=== PATIENT | male | born 1935 | race Caucasian/White ===

== ENCOUNTER → 2017-07-11 | Outpatient (CLI) | payer BC ==
[~2017-07-11] MED LIST: ALEN70TA4 PO; CALCTAB5 PO; FINA5TAB PO; FLM4 PO; LEVO75TA36 PO; PRZC/10 PO; SIMV10TA2 PO; VALA500T60 PO
== END | disposition home or self-care (01) ==
LOC: C.LAB 14:11
PROVIDERS: ATTEND Internal Medicine
DX: E03.9 Hypothyroidism, unspecified (principal)

== ENCOUNTER → 2017-12-26 | Outpatient (CLI) | payer BC | END | disposition home or self-care (01) | LOC: C.LABSPEC 12:02 | PROVIDERS: ATTEND Specialist | DX: E78.5 Hyperlipidemia, unspecified (principal) ==